=== PATIENT | female | born 1945 | race Caucasian/White ===

== ENCOUNTER 2017-10-26 11:19 | Observation (INO) | payer MEDICARE ==
[2017-10-26] MEDS ORDERED: ASPIRIN 81 MG PO STA (11:29)
[2017-10-26] MEDS ORDERED: NITROGLYCERIN SL TABS 0.4 MG TAB SUBLINGUAL STA (11:29)
[2017-10-26] MEDS ORDERED: NITROGLYCERIN OINT 1 INCH/GM PACKET TOPICAL STA (11:29)
--- NOTE | 2017-10-26 11:35 | ED ---
General Adult HPI - General Chief complaint: Chest Pain Stated complaint: CHEST PRESSURE Time Seen by Provider: 10/26/17 11:20 Source: patient, RN notes reviewed Mode of arrival: wheelchair Limitations: no limitations - History of Present Illness Initial comments: This is a 72-year-old female who presents emergency Department complaining of chest pressure. Patient states she had a heart attack this past January had 2 stents placed. Patient also has high blood pressure high cholesterol and is an occasional smoker. Patient states the pain started about 4 AM this morning and it got worse when she was exerting herself going around town. Patient denies any diaphoresis. Patient denies any nausea. Patient denies any abdominal pain. Patient states she was mildly short of breath with the pain as well. Patient denies any recent fever chills or cough. Patient denies any lightheadedness or dizziness. Patient seen palpitations. Patient denies any headache patient denies numbness weakness. Patient states the chest pressure is similar to the heart attacks except not quite as bad. Patient went to Dr. Billy's office and he sent her to the emergency department. - Related Data Home Medications Medication Instructions Recorded Confirmed Aspirin 81 mg PO DAILY 02/07/17 10/26/17 Vit C/E/Zn/Coppr/Lutein/Zeaxan 1 cap PO DAILY 02/07/17 10/26/17 [Preservision Areds 2 Softgel] Eye Lubricant Combination No.1 1 applic BOTH EYES DAILY PRN 10/26/17 10/26/17 [Freshkote] Fluticasone Nasal [place] [Flonase 1 spray EA NOSTRIL DAILY 10/26/17 10/26/17 Nasal [place]] Multivitamins, Thera [Multivitamin 1 tab PO HS 10/26/17 10/26/17 (formulary)] Prevagen 1 tab PO DAILY@1200 10/26/17 10/26/17 Previous Rx's Medication Instructions Recorded Atorvastatin [Lipitor] 80 mg PO HS #30 tab 02/10/17 Lisinopril [Zestril] 2.5 mg PO 1200 #30 tab 02/10/17 Metoprolol Tartrate [Lopressor] 25 mg PO BID #60 tab 02/10/17 Nitroglycerin Sl Tabs [Nitrostat] 0.4 mg SUBLINGUAL Q5M PRN #25 tab 02/10/17 Prasugrel [Effient] 10 mg PO HS #30 tab 02/10/17 Allergies Allergy/AdvReac Type Severity Reaction Status Date / Time No Known Allergies Allergy Verified 10/26/17 11:41 Review of Systems ROS Statement: Those systems with pertinent positive or pertinent negative responses have been documented in the HPI. ROS Other: All systems not noted in ROS Statement are negative. Past Medical History Past Medical History: Asthma, GERD/Reflux, Myocardial Infarction ([place]) Additional Past Medical History / Comment(s): seasonal allergies, kidney stones History of Any Multi-Drug Resistant Organisms: None Reported Past Surgical History: Hysterectomy Past Anesthesia/Blood Transfusion Reactions: No Reported Reaction Past Psychological History: No Psychological Hx Reported Smoking Status: Light tobacco smoker Past Alcohol Use History: None Reported Past Drug Use History: None Reported - Past Family History Father Family Medical History: Hypertension General Exam - General Exam Comments Initial Comments: GENERAL: Patient is well-developed and well-nourished. Patient is nontoxic and well- hydrated and is in no acute distress. ENT: Neck is soft and supple. No significant lymphadenopathy is noted. Oropharynx is clear. Moist mucous membranes. Neck has full range of motion without eliciting any pain. EYES: The sclera were anicteric and conjunctiva were pink and moist. Extraocular movements were intact and pupils were equal round and reactive to light. Eyelids were unremarkable. PULMONARY: Unlabored respirations. Good breath sounds bilaterally. No audible rales rhonchi or wheezing was noted. CARDIOVASCULAR: There is a regular rate and rhythm without any murmurs gallops or rubs. ABDOMEN: Soft and nontender with normal bowel sounds. No palpable organomegaly was noted. There is no palpable pulsatile mass. SKIN: Skin is clear with no lesions or rashes and otherwise unremarkable. NEUROLOGIC: Patient is alert and oriented x3. Cranial nerves II through XII are grossly intact. Motor and sensory are also intact. Normal speech, volume and content. Symmetrical smile. MUSCULOSKELETAL: Normal extremities with adequate strength and full range of motion. No lower extremity swelling or edema. No calf tenderness. LYMPHATICS: No significant lymphadenopathy is noted PSYCHIATRIC: Normal psychiatric evaluation. Limitations: no limitations Course Vital Signs 10/26/17 10/26/17 10/26/17 11:21 11:51 12:24 Temperature 97.7 F Pulse Rate 60 53 L Pulse Rate [ 65 Engraver Pantograph ] Respiratory 20 18 Rate Blood Pressure 135/71 130/60 O2 Sat by Pulse 98 100 Oximetry Medical Decision Making - Medical Decision Making EKG shows sinus bradycardia 53 bpm MD interval 180 QRS is 90 QT interval 428 QTC is 411. Patient's EKG shows some T-wave inversions in the inferior leads this was seen on old EKG Chest x-ray shows no acute abnormality. I started the patient on heparin secondary to her having unstable angina. I spoke with Dr. Serna she agreed to admit the patient admitted the patient wrote admitting orders and consult cardiology continued heparin Nitropaste and aspirin on the floor. Patient remained chest pain free throughout the ER stay. - Lab Data Result diagrams: 10/26/17 11:37 10/26/17 11:37 Lab Results 10/26/17 10/26/17 10/26/17 Range/Units 11:37 11:37 11:37 WBC 8.7 (3.8-10.6) k/uL RBC 4.63 (3.80-5.40) m/uL Hgb 14.1 (11.4-16.0) gm/dL Hct 43.6 (34.0-46.0) % MCV 94.2 (80.0-100.0) fL MCH 30.6 (25.0-35.0) pg MCHC 32.4 (31.0-37.0) g/dL RDW 12.8 (11.5-15.5) % Plt Count 198 (150-450) k/uL Neutrophils % 75 % Lymphocytes % 13 % Monocytes % 5 % Eosinophils % 6 % Basophils % 0 % Neutrophils # 6.6 (1.3-7.7) k/uL Lymphocytes # 1.1 (1.0-4.8) k/uL Monocytes # 0.4 (0-1.0) k/uL Eosinophils # 0.5 (0-0.7) k/uL Basophils # 0.0 (0-0.2) k/uL PT (9.0-12.0) sec INR (<1.2) APTT (22.0-30.0) sec Sodium 141 (137-145) mmol/L Potassium 4.4 (3.5-5.1) mmol/L Chloride 106 (98-107) mmol/L Carbon Dioxide 28 (22-30) mmol/L Anion Gap 7 mmol/L BUN 15 (7-17) mg/dL Creatinine 0.80 (0.52-1.04) mg/dL Est GFR (CKD-EPI)AfAm 85 (>60 ml/min/1.73 sqM) Est GFR (CKD-EPI)NonAf 74 (>60 ml/min/1.73 sqM) Glucose 104 H (74-99) mg/dL Calcium 9.6 (8.4-10.2) mg/dL Magnesium 2.0 (1.6-2.3) mg/dL Total Bilirubin 0.7 (0.2-1.3) mg/dL AST 24 (14-36) U/L ALT 28 (9-52) U/L Alkaline Phosphatase 83 (38-126) U/L Total Creatine Kinase 84 (30-135) U/L CK-MB (CK-2) 0.9 (0.0-2.4) ng/mL CK-MB (CK-2) Rel Index 1.1 Troponin I <0.012 (0.000-0.034) ng/mL Total Protein 6.7 (6.3-8.2) g/dL Albumin 4.0 (3.5-5.0) g/dL 10/26/17 Range/Units 11:37 WBC (3.8-10.6) k/uL RBC (3.80-5.40) m/uL Hgb (11.4-16.0) gm/dL Hct (34.0-46.0) % MCV (80.0-100.0) fL MCH (25.0-35.0) pg MCHC (31.0-37.0) g/dL RDW (11.5-15.5) % Plt Count (150-450) k/uL Neutrophils % % Lymphocytes % % Monocytes % % Eosinophils % % Basophils % % Neutrophils # (1.3-7.7) k/uL Lymphocytes # (1.0-4.8) k/uL Monocytes # (0-1.0) k/uL Eosinophils # (0-0.7) k/uL Basophils # (0-0.2) k/uL PT 9.9 (9.0-12.0) sec INR 1.0 (<1.2) APTT 22.8 (22.0-30.0) sec Sodium (137-145) mmol/L Potassium (3.5-5.1) mmol/L Chloride (98-107) mmol/L Carbon Dioxide (22-30) mmol/L Anion Gap mmol/L BUN (7-17) mg/dL Creatinine (0.52-1.04) mg/dL Est GFR (CKD-EPI)AfAm (>60 ml/min/1.73 sqM) Est GFR (CKD-EPI)NonAf (>60 ml/min/1.73 sqM) Glucose (74-99) mg/dL Calcium (8.4-10.2) mg/dL Magnesium (1.6-2.3) mg/dL Total Bilirubin (0.2-1.3) mg/dL AST (14-36) U/L ALT (9-52) U/L Alkaline Phosphatase (38-126) U/L Total Creatine Kinase (30-135) U/L CK-MB (CK-2) (0.0-2.4) ng/mL CK-MB (CK-2) Rel Index Troponin I (0.000-0.034) ng/mL Total Protein (6.3-8.2) g/dL Albumin (3.5-5.0) g/dL Critical Care Time Critical Care Time: Yes Total Critical Care Time: 35 Disposition Clinical Impression: Unstable angina pectoris Disposition: ADMITTED IP TO THIS HOSP Referrals: Modesto Quiroga MD [Primary Care Provider] - 1-2 days Time of Disposition: 12:49
[2017-10-26 11:54] LABS: Basophils % (A) 0 %; Eosinophils # (A) 0.5 k/uL (0-0.7); Eosinophils % (A) 6 %; HCT 43.6 % (34.0-46.0); HGB 14.1 gm/dL (11.4-16.0); Lymphocytes # (A) 1.1 k/uL (1.0-4.8); Lymphocytes % (A) 13 %; MCH 30.6 pg (25.0-35.0); MCHC 32.4 g/dL (31.0-37.0); MCV 94.2 fL (80.0-100.0); Mean Platelet Volume 6.6; Monocytes # (A) 0.4 k/uL (0-1.0); Monocytes % (A) 5 %; Neutrophils # (A) 6.6 k/uL (1.3-7.7); Neutrophils % (A) 75 %; Platelet Count 198 k/uL (150-450); RBC 4.63 m/uL (3.80-5.40); RDW 12.8 % (11.5-15.5); WBC 8.7 k/uL (3.8-10.6)
[2017-10-26 12:01] LABS: Partial Thromboplastin Time 22.8 sec (22.0-30.0); Prothrombin Time 9.9 sec (9.0-12.0)
[2017-10-26 12:02] LABS: Calcium 9.6 mg/dL (8.4-10.2); Potassium 4.4 mmol/L (3.5-5.1); Total Bilirubin 0.7 mg/dL (0.2-1.3); Total Protein 6.7 g/dL (6.3-8.2)
[2017-10-26 12:28] LABS: Creatine Kinase 84 U/L (30-135)
--- NOTE | 2017-10-26 12:30 | XR ---
EXAMINATION TYPE: XR chest 2V DATE OF EXAM: 10/26/2017 COMPARISON: Prior chest x-ray 02/07/2017 HISTORY: Chest pain TECHNIQUE: Frontal and lateral views of the chest are obtained. FINDINGS: There is no focal air space opacity, pleural effusion, or pneumothorax seen. The cardiac silhouette size is enlarged, stable. There are overlying cardiac leads. The osseous structures are intact. IMPRESSION: No acute cardiopulmonary process. Stable borderline enlarged heart.
[2017-10-26 12:38] LABS: Creatine Kinase MB 0.9 ng/mL (0.0-2.4)
[2017-10-26 12:41] LABS: Troponin I <0.012 ng/mL (0.000-0.034)
[2017-10-26] MEDS ORDERED: HEPARIN SODIUM,PORCINE 5,000 UNIT/ML 1 ML VIAL IV ONE (12:43)
[2017-10-26] MEDS ORDERED: HEPARIN SOD,PORK IN 0.45% NACL 25,000 UNIT in 0.45% NACL 1 500ML.BAG IV SCH (12:45)
[2017-10-26] MEDS ORDERED: NITROGLYCERIN SL TABS 0.4 MG TAB SUBLINGUAL PRN (12:49)
[2017-10-26] MEDS ORDERED: IPRATROPIUM-ALBUTEROL 3 ML NEB INHALATION PRN (13:15)
[2017-10-26] MEDS ORDERED: ONDANSETRON 4 MG/2 ML VIAL IVP PRN (13:15)
--- NOTE | 2017-10-26 13:25 | P.HPIM ---
History of Present Illness H&P Date: 10/26/17 72 years old female patient of Dr. Haas and Dr. Quiroga with past medical history of STEMI angioplasty of circumflex artery in January 2017, history of hypertension, hyperlipidemia, asthma along GERD presents with acute chest pressure in the center of the chest radiating to the back while patient is doing her daily activities. Patient denies any radiation to her arm or jaw, or sweating. She does document shortness of breath that she did well while she was trying to do her activities. Patient went to Dr. Haas's office and was sent to the ER. EKG obtained suggest T-wave abnormality in lead 3 and aVF. Labs including a CBC CMP and PT/INR, BMP was unremarkable. Troponin 1 is negative. Repeat troponin pending. Cardiology consult placed. Echocardiogram ordered. Patient placed on heparin drip Review of Systems Constitutional: Denies chills, Denies fever, Denies lethargy, Denies malaise, Denies poor appetite, Denies weakness, Denies weight loss Eyes: denies decreased vision, denies diplopia, denies discharge, denies pain Ears: deny: decreased hearing Ears, nose, mouth and throat: Denies dental pain, Denies headache, Denies nasal discharge, Denies nose pain Cardiovascular: Endorses chest pain, endorses decreased exercise tolerance, Denies edema, Denies high blood pressure, Denies irregular heart beat, Denies palpitations, Denies paroxysmal nocturnal dyspnea, Denies rapid heart beat, endorses shortness of breath Respiratory: Denies congestion, denies cough, Denies cough with sputum, endorses dyspnea, Denies home oxygen, Denies wheezing Gastrointestinal: Denies abdominal pain, Denies change in bowel habits, Denies coffee ground emesis, Denies early satiety, Denies excessive gas, Denies heartburn, Denies hematemesis, Denies hematochezia, Denies loss of appetite, Denies nausea, Denies vomiting Genitourinary: Denies dysuria, Denies flank pain, Denies kidney stones, Denies menorrhagia, Denies urgency, Denies urinary frequency Musculoskeletal: Denies gait dysfunction, Denies limitation of motion, Denies morning stiffness, Denies muscle cramps Integumentary: Denies rash, Denies wounds, Denies brittle nails, Denies change in hair/nails, Denies darkening of skin Neurological: Denies balance difficulties, Denies change in speech, Denies double vision, Denies gait dysfunction, Denies loss of vision, Denies motor disturbance, Denies numbness, Denies paralysis, Denies paresthesias, Denies seizures Psychiatric: Denies anxiety, Denies depression Endocrine: Denies excessive sweating, Denies excessive thirst, Denies high blood sugars, Denies palpitations Hematologic/Lymphatic: Denies easy bruising, Denies lymphadenopathy Past Medical History Past Medical History: Asthma, GERD/Reflux, Myocardial Infarction ([place]) Additional Past Medical History / Comment(s): seasonal allergies, kidney stones History of Any Multi-Drug Resistant Organisms: None Reported Past Surgical History: Hysterectomy Past Anesthesia/Blood Transfusion Reactions: No Reported Reaction Past Psychological History: No Psychological Hx Reported Smoking Status: Light tobacco smoker (Patient is smoking on and off for 50 years , smokes 1-2 cigarettes a day) Past Alcohol Use History: None Reported Past Drug Use History: None Reported - Past Family History Father Family Medical History: Coronary Artery Disease (CAD), Hypertension, Liver Disease Mother Family Medical History: Asthma Sister(s) Family Medical History: Cancer Additional Family Medical History / Comment(s): Lives alone, has 2 sons and daughter all healthy doing well. Patient has 2 livingsisters : doing well Medications and Allergies Home Medications Medication Instructions Recorded Confirmed Type Aspirin 81 mg PO DAILY 02/07/17 10/26/17 History Vit C/E/Zn/Coppr/Lutein/Zeaxan 1 cap PO DAILY 02/07/17 10/26/17 History [Preservision Areds 2 Softgel] Atorvastatin [Lipitor] 80 mg PO HS #30 tab 02/10/17 10/26/17 Rx Lisinopril [Zestril] 2.5 mg PO 1200 #30 tab 02/10/17 10/26/17 Rx Metoprolol Tartrate [Lopressor] 25 mg PO BID #60 tab 02/10/17 10/26/17 Rx Nitroglycerin Sl Tabs [Nitrostat] 0.4 mg SUBLINGUAL Q5M PRN #25 tab 02/10/1706/09 Rx Prasugrel [Effient] 10 mg PO HS #30 tab 02/10/17 10/26/17 Rx Eye Lubricant Combination No.1 1 applic BOTH EYES DAILY PRN 10/26/17 10/26/17 History [Freshkote] Fluticasone Nasal [place] [Flonase 1 spray EA NOSTRIL DAILY 10/26/17 10/26/17 History Nasal [place]] Multivitamins, Thera [Multivitamin 1 tab PO HS 10/26/17 10/26/17 History (formulary)] Prevagen 1 tab PO DAILY@1200 10/26/17 10/26/17 History Allergies Allergy/AdvReac Type Severity Reaction Status Date / Time No Known Allergies Allergy Verified 10/26/17 11:41 Physical Exam Vitals: Vital Signs Temp Pulse Pulse Resp BP Pulse Ox 10/26/17 12:24 53 L 18 130/60 100 10/26/17 11:51 65 10/26/17 11:21 97.7 F 60 20 135/71 98 Intake and Output 10/25/17 10/26/17 10/26/17 22:59 06:59 14:59 Other: Weight 86.636 kg - Constitutional General appearance: cooperative, no acute distress, obese - EENT Eyes: anicteric sclerae, PERRLA, normal appearance ENT: hearing grossly normal - Neck Neck: no lymphadenopathy, normal ROM, no other, no rigidity, no stridor, no thyromegaly - Respiratory Respiratory: bilateral: CTA, negative: diminished, dullness, rales, rhonchi - Cardiovascular Rhythm: regular Heart sounds: normal: S1, S2 Abnormal Heart Sounds: no systolic murmur, no diastolic murmur, no rub, no S3 Gallop, no S4 Gallop, no click, no other - Gastrointestinal General gastrointestinal: normal bowel sounds, soft - Integumentary Integumentary: no rash - Neurologic Neurologic: CNII-XII intact - Musculoskeletal Musculoskeletal: gait normal, strength equal bilaterally - Psychiatric Psychiatric: A&O x's 3, appropriate affect Results CBC & Chem 7: 10/26/17 11:37 10/26/17 11:37 Labs: Abnormal Lab Results - Last 24 Hours (Table) 10/26/17 Range/Units 11:37 Glucose 104 H (74-99) mg/dL Thrombosis Risk Factor Assmnt - DVT/VTE Prophylaxis DVT/VTE Prophylaxis: Pharmacologic Prophylaxis ordered Assessment and Plan Plan: #1 acute chest pain apical for cardiac etiology with history of coronary artery disease. Continue aspirin, Prasugrel, Lipitor, metoprolol and lisinopril. EKG with T-wave inversion in V3 and aVF. Initiated on heparin drip Nothing by mouth after midnight for possible cardiac in the morning. Cardiology evaluation. Echo ordered. #2 coronary artery disease status post angioplasty of circumflex artery. Continue treatment as above #3 hypertension continue lisinopril 2.5 mg by mouth daily, metoprolol 25 mg twice a day #4 hyperlipidemia continue Lipitor 80 mg daily at bedtime #5 of asthma DuoNeb as needed for shortness of breath #6 tobacco abuse patient counseled on smoking cessation states she is cutting down on #7 DVT prophylaxis with heparin drip #8 GI prophylaxis with Pepcid 20 mg by mouth daily CODE STATUS full
[2017-10-26 18:36] LABS: Creatine Kinase 68 U/L (30-135)
[2017-10-26] MEDS: NITROGLYCERIN OINT 1 INCH/GM PACKET TOPICAL SCH ×2 (18:38→23:26)
[2017-10-26] MEDS: FAMOTIDINE 20 MG TAB PO SCH (18:38)
[2017-10-26 18:48] LABS: Creatine Kinase MB 0.7 ng/mL (0.0-2.4); Troponin I <0.012 ng/mL (0.000-0.034)
[2017-10-26] MEDS ORDERED: FLUTICASONE 50MCG/SPRAY NASAL 16GM EA NOSTRIL PRN (20:57)
[2017-10-26] MEDS ORDERED: ARTIFICIAL TEARS-HYPROMELLOSE DROPS 15 ML BTL BOTH EYES PRN (20:57)
[2017-10-26] MEDS: PRASUGREL 10 MG TAB PO SCH (21:27)
[2017-10-26] MEDS: ATORVASTATIN 40 MG TAB PO SCH (21:27)
[2017-10-26] MEDS: METOPROLOL TARTRATE 25 MG TAB PO SCH (21:27)
[2017-10-26] MEDS: ACETAMINOPHEN TAB 325 MG TAB PO PRN (23:49)
[2017-10-26 23:55] LABS: Creatine Kinase 59 U/L (30-135)
[2017-10-27 00:06] LABS: Creatine Kinase MB 0.6 ng/mL (0.0-2.4)
[2017-10-27 00:09] LABS: Troponin I <0.012 ng/mL (0.000-0.034)
[2017-10-27] MEDS: NITROGLYCERIN OINT 1 INCH/GM PACKET TOPICAL SCH (03:40)
[2017-10-27 04:28] LABS: Basophils % (A) 1 %; Eosinophils # (A) 0.4 k/uL (0-0.7); Eosinophils % (A) 8 %; HCT 37.8 % (34.0-46.0); HGB 12.5 gm/dL (11.4-16.0); Lymphocytes % (A) 39 %; MCH 31.4 pg (25.0-35.0); MCHC 33.1 g/dL (31.0-37.0); MCV 94.8 fL (80.0-100.0); Mean Platelet Volume 7.1; Monocytes # (A) 0.4 k/uL (0-1.0); Monocytes % (A) 7 %; Neutrophils # (A) 2.4 k/uL (1.3-7.7); Neutrophils % (A) 45 %; Platelet Count 164 k/uL (150-450); RBC 3.99 m/uL (3.80-5.40); RDW 12.9 % (11.5-15.5); WBC 5.3 k/uL (3.8-10.6)
[2017-10-27 04:55] LABS: Albumin 3.2 g/dL (3.5-5.0); Potassium 4.1 mmol/L (3.5-5.1); Total Bilirubin 0.6 mg/dL (0.2-1.3); Total Protein 5.4 g/dL (6.3-8.2)
[2017-10-27] MEDS: ASPIRIN 325 MG TAB PO SCH (10:09)
[2017-10-27] MEDS ORDERED: LIDOCAINE 1% INJ 10MG/ML (20 ML MDV) ONE (10:20)
[2017-10-27] MEDS ORDERED: MIDAZOLAM 2 MG/2 ML VIAL ONE (10:37)
[2017-10-27] MEDS ORDERED: IV FLUID CONTINUATION 1,000 ML IV ONE (10:45)
[2017-10-27] MEDS ORDERED: MIDAZOLAM 2 MG/2 ML VIAL IV ONE (10:55)
[2017-10-27] MEDS ORDERED: LIDOCAINE 1% (PF) 10MG/ML VIAL SQ ONE (10:57)
--- NOTE | 2017-10-27 11:18 | ECHOF ---
Referral Reason:chest pain MEASUREMENTS -------- HEIGHT: 157.5 cm WEIGHT: 86.6 kg BP: 130/60 RVIDd: 3.3 cm (< 3.3) IVSd: 1.2 cm (0.6 - 1.1) LVIDd: 4.4 cm (3.9 - 5.3) LVPWd: 1.1 cm (0.6 - 1.1) IVSs: 1.6 cm LVIDs: 2.9 cm LVPWs: 1.5 cm LA Diam: 3.8 cm (2.7 - 3.8) LAESV Index (A-L): 29.19 ml/m Ao Diam: 2.9 cm (2.0 - 3.7) AV Cusp: 2.1 cm (1.5 - 2.6) MV EXCURSION: 12.690 mm (> 18.000) MV EF SLOPE: 68 mm/s (70 - 150) EPSS: 0.7 cm MV E Won: 1.04 m/s MV DecT: 214 ms MV A Won: 0.83 m/s MV E/A Ratio: 1.26 RAP: 5.00 mmHg RVSP: 21.70 mmHg FINDINGS -------- Sinus rhythm. This was a technically good study. The left ventricular size is normal. There is borderline concentric left ventricular hypertrophy. Overall left ventricular systolic function is normal with, an EF between 55 - 60 %. The right ventricle is mildly enlarged. LA is midly dilated 29-33ml/m2. The right atrium is normal in size. The aortic valve is trileaflet and appears structurally normal. Mild mitral annular calcification present. Mild mitral regurgitation is present. Mild tricuspid regurgitation present. Right ventricular systolic pressure is normal at < 35 mmHg. Trace/mild (physiologic) pulmonic regurgitation. The aortic root size is normal. Normal inferior vena cava with normal inspiratory collapse consistent with estimated right atrial pre ssure of 5 mmHg. There is no pericardial effusion. CONCLUSIONS -------- 1. Sinus rhythm. 2. This was a technically good study. 3. The left ventricular size is normal. 4. There is borderline concentric left ventricular hypertrophy. 5. Overall left ventricular systolic function is normal with, an EF between 55 - 60 %. 6. The right ventricle is mildly enlarged. 7. LA is midly dilated 29-33ml/m2. 8. The right atrium is normal in size. 9. The aortic valve is trileaflet and appears structurally normal. 10. Mild mitral annular calcification present. 11. Mild mitral regurgitation is present. 12. Mild tricuspid regurgitation present. 13. Right ventricular systolic pressure is normal at < 35 mmHg. 14. Trace/mild (physiologic) pulmonic regurgitation. 15. The aortic root size is normal. 16. Normal inferior vena cava with normal inspiratory collapse consistent with estimated right atrial pressure of 5 mmHg. 17. There is no pericardial effusion. VETERINARY ATTENDANT: July Mcduffie RDCS
[2017-10-27] MEDS ORDERED: RX INFO: IV CONTRAST WAS GIVEN 1 EACH MISC MISCELLANE PRN (11:19)
--- NOTE | 2017-10-27 11:21 | P.PN ---
Subjective Progress Note Date: 10/27/17 72 years old female patient of Dr. Haas and Dr. Quiroga with past medical history of STEMI angioplasty of circumflex artery in January 2017, history of hypertension, hyperlipidemia, asthma along GERD presents with acute chest pressure in the center of the chest radiating to the back while patient is doing her daily activities. Patient denies any radiation to her arm or jaw, or sweating. She does document shortness of breath that she did well while she was trying to do her activities. Patient went to Dr. Haas's office and was sent to the ER. EKG obtained suggest T-wave abnormality in lead 3 and aVF. Labs including a CBC CMP and PT/INR, BMP was unremarkable. Troponin 1 is negative. Repeat troponin pending. Cardiology consult placed. Echocardiogram ordered. Patient placed on heparin drip 10/27: Patient remains on heparin drip. Troponins have been negative on 3 draws. Triglycerides 80, cholesterol 107, LDL 48 and HDL 43. Patient is now pain- free. has been seen by cardiology with plan for heart catheterization with Dr. Haas today. Objective - Vital Signs Vital signs: Vital Signs Temp 97.7 F 10/27/17 10:14 Pulse 55 L 10/27/17 10:14 Resp 16 10/27/17 10:14 BP 116/72 10/27/17 10:14 Pulse Ox 97 10/27/17 10:14 Intake & Output 10/26/17 10/27/17 10/27/17 18:59 06:59 18:59 Intake Total 620 132.136 Balance 620 132.136 Weight 86.1 kg Intake: Intake, IV Titration 132.136 Amount Heparin Sod,Pork in 0.45% 132.136 NaCl 25,000 unit In 0.45 % NaCl 1 500ml.bag @ 11.5 UNITS/KG/HR 19.92 mls/hr IV .Q24H JARRETT Rx#: [id number] Oral 620 Other: Voiding Method Toilet Toilet # Voids 1 - Exam General appearance: cooperative, no acute distress, obese - EENT Eyes: anicteric sclerae, PERRLA, normal appearance ENT: hearing grossly normal - Neck Neck: no lymphadenopathy, normal ROM, no other, no rigidity, no stridor, no thyromegaly - Respiratory Respiratory: bilateral: CTA, negative: diminished, dullness, rales, rhonchi - Cardiovascular Rhythm: regular Heart sounds: normal: S1, S2 Abnormal Heart Sounds: no systolic murmur, no diastolic murmur, no rub, no S3 Gallop, no S4 Gallop, no click, no other - Gastrointestinal General gastrointestinal: normal bowel sounds, soft - Integumentary Integumentary: no rash - Neurologic Neurologic: CNII-XII intact - Musculoskeletal Musculoskeletal: gait normal, strength equal bilaterally - Psychiatric Psychiatric: A&O x's 3, appropriate affect - Labs CBC & Chem 7: 10/27/17 03:38 10/27/17 03:38 Labs: Abnormal Lab Results - Last 24 Hours (Table) 10/26/17 10/26/17 10/27/17 Range/Units 11:37 18:55 03:38 APTT 138.4 H* (22.0-30.0) sec Chloride 109 H (98-107) mmol/L Glucose 104 H (74-99) mg/dL Total Protein 5.4 L (6.3-8.2) g/dL Albumin 3.2 L (3.5-5.0) g/dL 10/27/17 Range/Units 03:38 APTT 75.6 H (22.0-30.0) sec Chloride (98-107) mmol/L Glucose (74-99) mg/dL Total Protein (6.3-8.2) g/dL Albumin (3.5-5.0) g/dL Assessment and Plan Plan: #1 acute chest pain apical for cardiac etiology with history of coronary artery disease. Continue aspirin, Prasugrel, Lipitor, metoprolol and lisinopril. EKG with T-wave inversion in V3 and aVF. Initiated on heparin drip Nothing by mouth after midnight for possible cardiac in the morning. Cardiology evaluation. Echo ordered. #2 coronary artery disease status post angioplasty of circumflex artery. Continue treatment as above #3 hypertension continue lisinopril 2.5 mg by mouth daily, metoprolol 25 mg twice a day #4 hyperlipidemia continue Lipitor 80 mg daily at bedtime #5 of asthma DuoNeb as needed for shortness of breath #6 tobacco abuse patient counseled on smoking cessation states she is cutting down on #7 DVT prophylaxis with heparin drip #8 GI prophylaxis with Pepcid 20 mg by mouth daily CODE STATUS full Discharge plan: Return home Impression and plan of care have been directed as dictated by the signing physician. Yenny Kang nurse practitioner acting as scribe for signing physician.
[2017-10-27] MEDS ORDERED: IOPAMIDOL-370 125ML BTL INJ ONE (11:26)
[2017-10-27] MEDS ORDERED: NON-FORMULARY DRUG (Prevagen 1 TAB) PO SCH (12:00)
[2017-10-27] MEDS ORDERED: MULTIVITAMINS, THERA 1 EACH TAB PO SCH (12:00)
[2017-10-27] MEDS: SODIUM CHLORIDE 0.9% 1,000 ML IV SCH (12:36)
[2017-10-27] MEDS: METOPROLOL TARTRATE 25 MG TAB PO SCH ×2 (12:36→20:16)
[2017-10-27] MEDS: VIT A,C & E-LUTEIN-MINERALS 1 EACH TAB PO SCH (12:36)
[2017-10-27] MEDS: ISOSORBIDE MONONITRATE ER 30 MG TAB.ER.24H PO SCH (12:36)
[2017-10-27] MEDS: FAMOTIDINE 20 MG TAB PO SCH (12:36)
--- NOTE | 2017-10-27 14:08 | CONS ---
CONSULTATION Mrs. Gil is a 72-year-old female who is seen for cardiac evaluation. Patient's medical records reviewed. This patient underwent stent to the circumflex coronary artery in January of 2017. Patient was admitted with a complaint of chest discomfort. Patient had a pain diffuse across the chest which was radiating to the back as well as the jaw. Pain was not associated with any nausea, vomiting or sweating. Patient was sent to the emergency room where the EKG showed minimal T-wave inversions in lead 3. Patient's troponins are negative. In view of the prolonged episode of chest pain suggestive of unstable angina syndrome, patient is advised further evaluation with cardiac catheterization for definitive diagnosis. PAST MEDICAL HISTORY: Includes a history of asthma, history of myocardial infarction, history of kidney stones and hysterectomy. PATIENT'S HOME MEDICATIONS: Included aspirin 81 mg daily, Lipitor 80 mg daily, Zestril 2.5 mg daily, Lopressor 25 mg b.i.d., Effient 10 mg daily. PHYSICAL EXAMINATION: At present reveals a 72-year-old female who does not appear to be in any acute distress. Patient's blood pressure is 116/72 mmHg, heart rate is 55 per minute. HEENT examination is negative. Neck is supple. There is no increase in jugular venous pressure. Both the carotid pulses are felt. There is no bruit. Chest is symmetrical. Heart, the PMI is not felt. First and second heart sounds are normal. There is no evidence of any murmur. Lungs are clinically clear to auscultation and percussion. Abdomen is soft. Liver and spleen are not enlarged. Bowel sounds are heard. Extremities, peripheral pulses are 2+. EKG shows nonspecific T-wave changes. Patient's tropes are negative. IMPRESSION: 1. Prolonged episode of chest pain, suggestive of unstable angina syndrome, rule out any significant restenosis or new lesion in the coronary arteries. 2. Status post stent to the circumflex coronary artery. 3. History of hyperlipidemia. The procedure and risks were discussed with the patient and she would like to proceed with it. MMODL / IJN: [id number] /
--- NOTE | 2017-10-27 14:13 | CC ---
CARDIAC CATHETERIZATION REPORT INDICATION: Unstable angina. PROCEDURE NOTE: After obtaining informed consent, left heart catheterization, coronary angiogram are performed via the right femoral artery using standard Lorne catheters. Patient tolerated the procedure well without any obvious immediate complications. A femoral angiogram was performed and decision was made for manual hemostasis. Patient received moderate conscious sedation. Total sedation time was 18 minutes. FINDINGS: 1. HEMODYNAMICS Left ventricular end-diastolic pressure is 12 mm. There is no significant gradient across aortic valve. 2. LEFT VENTRICULOGRAM: Left ventriculogram is not performed. 3. ANGIOGRAPHIC DATA: 4. LEFT MAIN CORONARY ARTERY: Left main coronary artery is a normal-sized vessel and is free of stenosis. Divides into left anterior descending coronary artery and circumflex coronary artery. LAD shows a mild atherosclerotic plaque in its ostial portion. Both mid and distal LAD and the branches are free of significant stenosis. Circumflex coronary artery was previously stented in the proximal part, stent appears patent and is free of significant disease Right coronary artery is a large dominant vessel that shows mild atherosclerotic plaque in the proximal part. CONCLUSION: Patent stent within the circumflex coronary artery. PLAN: Patient's management is going to be in the form of continued medical therapy with aspirin, Effient, Lipitor Lopressor, and will add Imdur 30 mg daily to her current medical regimen. She can be discharged home later this afternoon and will be followed up in my office. MMODL / IJN: [id number] /
[2017-10-27] MEDS: ACETAMINOPHEN TAB 325 MG TAB PO PRN (14:28)
[2017-10-27] MEDS: ATORVASTATIN 40 MG TAB PO SCH (20:13)
[2017-10-27] MEDS: PRASUGREL 10 MG TAB PO SCH (20:50)
[2017-10-28] MEDS: SODIUM CHLORIDE 0.9% 1,000 ML IV SCH (04:03)
[2017-10-28] MEDS: ACETAMINOPHEN TAB 325 MG TAB PO PRN ×2 (04:34→12:11)
[2017-10-28 06:55] LABS: Basophils % (A) 0 %; Eosinophils # (A) 0.3 k/uL (0-0.7); Eosinophils % (A) 7 %; HCT 34.5 % (34.0-46.0); HGB 11.2 gm/dL (11.4-16.0); Lymphocytes # (A) 1.4 k/uL (1.0-4.8); Lymphocytes % (A) 28 %; MCH 30.7 pg (25.0-35.0); MCHC 32.5 g/dL (31.0-37.0); MCV 94.6 fL (80.0-100.0); Mean Platelet Volume 7.2; Monocytes # (A) 0.3 k/uL (0-1.0); Monocytes % (A) 6 %; Neutrophils # (A) 2.8 k/uL (1.3-7.7); Neutrophils % (A) 58 %; Platelet Count 158 k/uL (150-450); RBC 3.64 m/uL (3.80-5.40); RDW 12.9 % (11.5-15.5); WBC 4.9 k/uL (3.8-10.6)
[2017-10-28 07:27] LABS: Albumin 2.8 g/dL (3.5-5.0); Calcium 8.8 mg/dL (8.4-10.2); Potassium 4.2 mmol/L (3.5-5.1); Total Bilirubin 0.5 mg/dL (0.2-1.3)
[2017-10-28 08:23] VITALS: BP 106/59; PULSE 60; RESP 18; TEMP 97.6
[2017-10-28] MEDS: VIT A,C & E-LUTEIN-MINERALS 1 EACH TAB PO SCH (09:50)
[2017-10-28] MEDS: ASPIRIN 325 MG TAB PO SCH (09:50)
[2017-10-28] MEDS: ISOSORBIDE MONONITRATE ER 30 MG TAB.ER.24H PO SCH (09:50)
[2017-10-28] MEDS: FAMOTIDINE 20 MG TAB PO SCH (09:51)
[2017-10-28] MEDS: METOPROLOL TARTRATE 25 MG TAB PO SCH (10:15)
--- NOTE | 2017-10-28 10:40 | P.PN ---
Subjective Mrs. Gil is seen and examined resting comfortably in bed in no acute distress with family at the bedside. She underwent cardiac catheterization yesterday per Dr. Billy which revealed a patent stent in the cicumflex artery with mild atherosclerotic plaques noted in ostial LAD and prox RCA with no significant obstructive disease. She has been up walking with no chest pain, shortness of breath, palpitations or dizziness. She denies pain to the right groin or leg. Blood pressure 106/59 heart rate 68 afebrile maintaining oxygen saturation on room air. Laboratory data reviewed, hemoglobin 11.2, sodium 141, potassium 4.2 , platelets 158, creatinine 0.9. Objective - Vital Signs Vital signs: Vital Signs Temp 97.6 F 10/28/17 07:45 Pulse 60 10/28/17 07:45 Resp 18 10/28/17 07:45 BP 106/59 10/28/17 07:45 Pulse Ox 95 10/28/17 07:45 Intake & Output 10/27/17 10/28/17 10/28/17 18:59 06:59 18:59 Intake Total 415 600 480 Balance 415 600 480 Intake: IV 75 600 Sodium Chloride 0.9% 1, 600 000 ml @ 75 mls/hr IV . [id number] [facility] Rx#:[id number] Oral 340 480 Other: Voiding Method Bedpan Toilet Toilet - Exam GENERAL: Well-appearing, well-nourished and in no acute distress. NECK: Supple without JVD or thyromegaly. LUNGS: Breath sounds clear to auscultation bilaterally. Respiration equal and unlabored. No wheezes, rales or rhonchi. HEART: Regular rate and rhythm without murmurs, rubs or gallops. S1 and S2 heard. EXTREMITIES: Normal range of motion, no edema. No clubbing or cyanosis. Peripheral pulses intact. Right groin soft, non-tender, mild ecchymosis noted, no hematoma, no bleeding. - Labs CBC & Chem 7: 10/28/17 06:21 10/28/17 06:21 Labs: Abnormal Lab Results - Last 24 Hours (Table) 10/28/17 10/28/17 Range/Units 06:21 06:21 RBC 3.64 L (3.80-5.40) m/uL Hgb 11.2 L (11.4-16.0) gm/dL Chloride 111 H (98-107) mmol/L Total Protein 5.0 L (6.3-8.2) g/dL Albumin 2.8 L (3.5-5.0) g/dL Assessment and Plan Assessment: ASSESSMENT Unstable angina Coronary artery disease s/p stenting of circumflex artery Dyslipidemia Hypertension Chronic nicotine dependence PLAN Stable from a cardiac perspective. Home medications aspirin 81 mg daily, atorvastatin 40 mg daily, lopressor 25 mg BID and effient 10 mg daily. Follow up appointment with Dr. Billy in 1 week. Nurse Practitioner note has been reviewed, I agree with a documented findings and plan of care. Patient was seen and examined.
--- NOTE | 2017-10-28 12:21 | P.DS ---
Providers Date of admission: 10/26/17 12:49 Attending physician: Lisa Serna MD Consults: 10/26/17 12:49 Consult Physician Urgent Consulting Provider: [facility] Consult Reason/Comments: Unstable angina Do you want consulting provider notified?: Yes Primary care physician: Modesto Quiroga [facility] Course: 72 years old female patient of Dr. Haas and Dr. Quiroga with past medical history of STEMI angioplasty of circumflex artery in January 2017, history of hypertension, hyperlipidemia, asthma along GERD presents with acute chest pressure in the center of the chest radiating to the back while patient is doing her daily activities. Patient denies any radiation to her arm or jaw, or sweating. She does document shortness of breath that she did well while she was trying to do her activities. Patient went to Dr. Haas's office and was sent to the ER. EKG obtained suggest T-wave abnormality in lead 3 and aVF. Labs including a CBC CMP and PT/INR, BMP was unremarkable. Troponin 1 is negative. Repeat troponin pending. Cardiology consult placed. Echocardiogram ordered. Patient placed on heparin drip 10/27: Patient remains on heparin drip. Troponins have been negative on 3 draws. Triglycerides 80, cholesterol 107, LDL 48 and HDL 43. Patient is now pain- free. has been seen by cardiology with plan for heart catheterization with Dr. Haas today. 10/28: Patient underwent cardiac catheterization yesterday, it showed patent stent within the circumflex coronary artery, cardiology recommendations are for continuation of medical therapy with aspirin, Effient, Lipitor, Lopressor, and Imdur was added. She will be discharged home with follow-up. Discharge Diagnoses: #1 acute chest pain apical for cardiac etiology with history of coronary artery disease. #2 coronary artery disease status post angioplasty of circumflex artery. #3 hypertension #4 hyperlipidemia #5 asthma #6 tobacco abuse Impression and plan of care have been directed as dictated by the signing physician. Obdulia Campbell nurse practitioner acting as scribe for signing physician. Patient Condition at Discharge: Good Plan - Discharge Summary Discharge Rx Participant: No New Discharge Prescriptions: New Isosorbide Mononitrate ER [Imdur] 30 mg PO DAILY #30 tab.er.24h Continue Aspirin 81 mg PO DAILY Vit C/E/Zn/Coppr/Lutein/Zeaxan [Preservision Areds 2 Softgel] 1 cap PO DAILY Metoprolol Tartrate [Lopressor] 25 mg PO BID #60 tab Nitroglycerin Sl Tabs [Nitrostat] 0.4 mg SUBLINGUAL Q5M PRN #25 tab PRN Reason: Chest Pain Prasugrel [Effient] 10 mg PO HS #30 tab Prevagen 1 tab PO DAILY@1200 Fluticasone Nasal [place] [Flonase Nasal Croton] 1 spray EA NOSTRIL DAILY Multivitamins, Thera [Multivitamin (formulary)] 1 tab PO HS Eye Lubricant Combination No.1 [Freshkote] 1 applic BOTH EYES DAILY PRN PRN Reason: Dry Eye(S) Atorvastatin [Lipitor] 40 mg PO HS Discharge Medication List Aspirin 81 mg PO DAILY 02/07/17 [History] Vit C/E/Zn/Coppr/Lutein/Zeaxan [Preservision Areds 2 Softgel] 1 cap PO DAILY [History] Metoprolol Tartrate [Lopressor] 25 mg PO BID #60 tab 02/10/17 [Rx] Nitroglycerin Sl Tabs [Nitrostat] 0.4 mg SUBLINGUAL Q5M PRN #25 tab 02/10/17 [Rx ] Prasugrel [Effient] 10 mg PO HS #30 tab 02/10/17 [Rx] Atorvastatin [Lipitor] 40 mg PO HS 10/26/17 [History] Eye Lubricant Combination No.1 [Freshkote] 1 applic BOTH EYES DAILY PRN [History] Fluticasone Nasal [place] [Flonase Nasal Croton] 1 spray EA NOSTRIL DAILY 10/26/17 [History] Multivitamins, Thera [Multivitamin (formulary)] 1 tab PO HS 10/26/17 [History] Prevagen 1 tab PO DAILY@1200 10/26/17 [History] Isosorbide Mononitrate ER [Imdur] 30 mg PO DAILY #30 tab.er.24h 10/28/17 [Rx] Follow up Appointment(s)/Referral(s): Modesto Quiroga MD [Primary Care Provider] - 1-2 days Moisés Billy MD [STAFF PHYSICIAN] - 11/04/17 9:00 am Patient Instructions/Handouts: Chest Pain (ED) Discharge Disposition: HOME SELF-CARE
[2017-10-29] MEDS ORDERED: ASPIRIN 81 MG PO SCH (09:00)
== END 2017-10-28 12:20 | disposition home or self-care (01) ==
LOC: EC 11:19 → 3OBS 12:49
PROVIDERS: ADMIT Internal Medicine; ATTEND Internal Medicine
DX: I25.110 Atherosclerotic heart disease of native coronary artery with unstable angina pectoris (principal); I10 Essential (primary) hypertension; E78.5 Hyperlipidemia, unspecified; J45.909 Unspecified asthma, uncomplicated; K21.9 Gastro-esophageal reflux disease without esophagitis; F17.210 Nicotine dependence, cigarettes, uncomplicated; E78.00 Pure hypercholesterolemia, unspecified; Z79.82 Long term (current) use of aspirin; Z79.51 Long term (current) use of inhaled steroids; Z79.02 Long term (current) use of antithrombotics/antiplatelets; Z79.899 Other long term (current) drug therapy; Z90.710 Acquired absence of both cervix and uterus; Z87.442 Personal history of urinary calculi; I25.2 Old myocardial infarction; Z95.5 Presence of coronary angioplasty implant and graft; Z82.49 Family history of ischemic heart disease and other diseases of the circulatory system; Z82.5 Family history of asthma and other chronic lower respiratory diseases; Z80.9 Family history of malignant neoplasm, unspecified; Z83.79 Family history of other diseases of the digestive system
CPT/HCPCS: 99291 ×2; 96365 ×2; 96366 ×6; 36415; 93005; 93306; 93458; 80061; 80053 ×3; 82550; 82553; 83735; 84484; 85025 ×3; 85610; 85730 ×2; 71046; G0378 ×3; C1894; C1769; J2250; J1644 ×2; J2001; Q9967

== ENCOUNTER → 2018-06-07 | Outpatient (CLI) | payer MEDICARE ==
[2018-06-07 19:29] LABS: LDL Cholesterol,Calculated 74.2 mg/dL (0.0-131.0); VLDL Calculation 15.8 mg/dL (5.00-40.00)
== END ==
LOC: LABWHC1 11:39
PROVIDERS: ATTEND Internal Medicine Cardiovascular Disease
DX: E78.2 Mixed hyperlipidemia (principal)
CPT/HCPCS: 36415; 80061; 84450; 84460